=== PATIENT | male | born 1950 | race Caucasian/White ===

== ENCOUNTER 2017-07-22 00:53 | Inpatient (IN) | payer OTHER ==
[~2017-07-22] VITALS: Ht 180.3 cm; Wt 109.9 kg
[~2017-07-22 00:53] MED LIST: ANTIVERT25 MG PO; ASPIR-LOW81 MG PO; ASPIRIN325 MG PO; METOPROLOL SUC100 MG PO; PREDNISONE10 MG PO; PRINIVIL10 MG PO
[2017-07-22 01:13] LABS: ADD MIUA? YES; BILIRUBIN NEGATIVE; BLOOD SMALL; COLOR YELLOW ((YELLOW)); GLUCOSE (STRIP) NEGATIVE; KETONES NEGATIVE; LEUKOCYTES LARGE; NITRITE POSITIVE; PROTEIN (STRIP) 30; SPECIFIC GRAVITY 1.023 (1.000-1.030)
[2017-07-22 01:17] LABS: BACTERIA 3+ /HPF; EPITHELIAL CELLS RARE /HPF; MUCUS TRACE /LPF; UCUL ADDED? YES; WHITE BLOOD CELLS TNTC /HPF (0-5)
[2017-07-22 01:23] LABS: HEMATOCRIT 42.1 % (38.0-50.0); MCH 29.4 PG (29.0-34.0); MCHC 32.3 G/DL (30.0-36.0); MCV 91.1 FL (86-99); MEAN PLAT.VOLUME 10.9 uM^3 (9.0-12.4); PLATELET COUNT 244 K/uL (156-360); RBC DIS.WIDTH-CV 12.2 % (11.8-14.6); RBC DIS.WIDTH-SD 40.6 % (39-53); RED BLOOD COUNT 4.62 M/uL (4.00-5.50); WHITE BLOOD COUNT 10.2 K/uL (4.1-10.2)
[2017-07-22 01:40] LABS: CHLORIDE 104 mEq/L (99-109); POTASSIUM 4.4 mEq/L (3.7-5.4); SODIUM 139 mEq/L (136-147)
[2017-07-22 01:42] LABS: GLUCOSE 134 mg/dL (70-99)
[2017-07-22 01:44] LABS: ANION GAP 10 MEQ/L (2-14); TOTAL BILIRUBIN 0.3 mg/dL (0.0-1.0)
[2017-07-22 01:46] LABS: ALKALINE PHOSPHATASE 40 IU/L (3-129); GFR ESTIMATE (CALCULATED) 59 mL/min/
[2017-07-22 01:47] LABS: UREA NITROGEN (BUN) 29 mg/dL (9-23)
[2017-07-22] MEDS ORDERED: ASPIR 8181 M1 PO (03:11)
[2017-07-22 07:01] LABS: TROP-I INTERPRETATION NEGATIVE; TROPONIN-I < 0.01 ng/mL (0.0-0.30)
[2017-07-22 14:26] VITALS: BP 140/80
[2017-07-22 19:19] VITALS: BP 140/81
[2017-07-22 23:07] VITALS: BP 157/83
[2017-07-23 03:11] VITALS: BP 144/81
[2017-07-23 05:55] LABS: MCH 29.1 PG (29.0-34.0); MCHC 31.9 G/DL (30.0-36.0); MCV 91.3 FL (86-99); MEAN PLAT.VOLUME 11.1 uM^3 (9.0-12.4); PLATELET COUNT 247 K/uL (156-360); RBC DIS.WIDTH-CV 12.6 % (11.8-14.6); RBC DIS.WIDTH-SD 42.3 % (39-53); WHITE BLOOD COUNT 12.3 K/uL (4.1-10.2)
[2017-07-23 07:26] LABS: ANION GAP 10 MEQ/L (2-14); CHLORIDE 109 MEQ/L (99-109); GFR ESTIMATE (CALCULATED) > 59 mL/min/; GLUCOSE 113 mg/dL (70-99); POTASSIUM 4.2 MEQ/L (3.7-5.4); SAMPLE HEMOLYSIS CHECK 0; SAMPLE ICTERIC CHECK 0; SAMPLE LIPEMIA CHECK 0; SODIUM 143 MEQ/L (136-147); UREA NITROGEN (BUN) 29 mg/dL (9-23)
[2017-07-23 08:25] VITALS: BP 169/96
[2017-07-23 10:27] VITALS: BP 181/94
[2017-07-23 10:35] LABS: POINT-OF-CARE METER ID UU13113725
[2017-07-23 15:56] VITALS: BP 158/94
[2017-07-23 20:15] VITALS: BP 160/90
[2017-07-24 01:01] VITALS: BP 160/90
[2017-07-24 04:33] VITALS: BP 172/90
[2017-07-24 06:23] LABS: BASOPHIL COUNT 0.1 K/uL (0-0.1); EOSINOPHIL (%) 0.1 % (0-5); HEMATOCRIT 41.4 % (38.0-50.0); IMMATURE GRANULOCYTE (%) 0.3 % (0.0-0.7); INSTRUMENT ABS NEUTROPHIL CT 7.5 K/uL; MCH 29.2 PG (29.0-34.0); MCHC 32.1 G/DL (30.0-36.0); MCV 90.8 FL (86-99); MEAN PLAT.VOLUME 10.9 uM^3 (9.0-12.4); MONOCYTE (%) 9.7 % (3-12); MONOCYTE COUNT 0.9 K/uL (0-0.8); NEUTROPHIL (%) 78.6 % (45-76); NEUTROPHIL COUNT 7.5 K/uL (1.8-6.4); PLATELET COUNT 240 K/uL (156-360); RBC DIS.WIDTH-CV 12.7 % (11.8-14.6); RED BLOOD COUNT 4.56 M/uL (4.00-5.50); WHITE BLOOD COUNT 9.5 K/uL (4.1-10.2)
[2017-07-24 06:42] LABS: ANION GAP 7 MEQ/L (2-14); CHLORIDE 108 MEQ/L (99-109); GFR ESTIMATE (CALCULATED) > 59 mL/min/; GLUCOSE 113 mg/dL (70-99); POTASSIUM 4.1 MEQ/L (3.7-5.4); SAMPLE HEMOLYSIS CHECK 0; SAMPLE ICTERIC CHECK 0; SAMPLE LIPEMIA CHECK 0; SODIUM 139 MEQ/L (136-147); UREA NITROGEN (BUN) 32 mg/dL (9-23)
[2017-07-24 07:11] VITALS: BP 160/100
[2017-07-24 11:30] VITALS: BP 164/84
[2017-07-24 12:55] LABS: C DIFF TOXIN NEGATIVE (NEGATIVE)
[2017-07-24 12:58] LABS: PROBE CHECK PASS; SPECIMEN PROCESSING CONTROL PASS
[2017-07-24 16:37] VITALS: BP 169/82
[2017-07-24 23:35] VITALS: BP 153/72
[2017-07-25 06:18] LABS: BASOPHIL COUNT 0.1 K/uL (0-0.1); EOSINOPHIL (%) 1.5 % (0-5); EOSINOPHIL COUNT 0.1 K/uL (0-0.3); IMMATURE GRANULOCYTE (%) 0.1 % (0.0-0.7); INSTRUMENT ABS NEUTROPHIL CT 4.7 K/uL; LYMPHOCYTE COUNT 1.4 K/uL (1.0-2.8); MCHC 32.1 G/DL (30.0-36.0); MCV 90.1 FL (86-99); MEAN PLAT.VOLUME 10.9 uM^3 (9.0-12.4); MONOCYTE (%) 14.3 % (3-12); MONOCYTE COUNT 1.1 K/uL (0-0.8); NEUTROPHIL (%) 64.6 % (45-76); NEUTROPHIL COUNT 4.7 K/uL (1.8-6.4); PLATELET COUNT 239 K/uL (156-360); RBC DIS.WIDTH-CV 12.7 % (11.8-14.6); RBC DIS.WIDTH-SD 41.8 % (39-53); RED BLOOD COUNT 4.66 M/uL (4.00-5.50); WHITE BLOOD COUNT 7.3 K/uL (4.1-10.2)
[2017-07-25 06:40] LABS: ANION GAP 9 MEQ/L (2-14); CHLORIDE 106 MEQ/L (99-109); GFR ESTIMATE (CALCULATED) > 59 mL/min/; GLUCOSE 95 mg/dL (70-99); MAGNESIUM 1.9 mg/dl (1.3-2.7); POTASSIUM 3.7 MEQ/L (3.7-5.4); SAMPLE HEMOLYSIS CHECK 0; SAMPLE ICTERIC CHECK 0; SAMPLE LIPEMIA CHECK 0; SODIUM 137 MEQ/L (136-147); UREA NITROGEN (BUN) 34 mg/dL (9-23)
[2017-07-25 07:04] VITALS: BP 164/99
[2017-07-25 15:04] VITALS: BP 175/100
[2017-07-25 23:38] VITALS: BP 176/93
[2017-07-26 06:00] LABS: EOSINOPHIL COUNT 0.2 K/uL (0-0.3); IMMATURE GRANULOCYTE (%) 0.4 % (0.0-0.7); INSTRUMENT ABS NEUTROPHIL CT 5.4 K/uL; LYMPHOCYTE COUNT 1.2 K/uL (1.0-2.8); MCH 30.1 PG (29.0-34.0); MCHC 33.1 G/DL (30.0-36.0); MCV 90.9 FL (86-99); MEAN PLAT.VOLUME 11.1 uM^3 (9.0-12.4); MONOCYTE (%) 12.2 % (3-12); NEUTROPHIL (%) 69.5 % (45-76); NEUTROPHIL COUNT 5.4 K/uL (1.8-6.4); PLATELET COUNT 227 K/uL (156-360); RBC DIS.WIDTH-CV 12.8 % (11.8-14.6); RBC DIS.WIDTH-SD 42.4 % (39-53); RED BLOOD COUNT 4.29 M/uL (4.00-5.50); WHITE BLOOD COUNT 7.8 K/uL (4.1-10.2)
[2017-07-26 06:58] LABS: ALKALINE PHOSPHATASE 27 IU/L (3-129); ANION GAP 12 MEQ/L (2-14); CHLORIDE 108 MEQ/L (99-109); GFR ESTIMATE (CALCULATED) > 59 mL/min/; GLUCOSE 84 mg/dL (70-99); POTASSIUM 3.7 MEQ/L (3.7-5.4); SAMPLE HEMOLYSIS CHECK 0; SAMPLE ICTERIC CHECK 0; SAMPLE LIPEMIA CHECK 0; SODIUM 142 MEQ/L (136-147); TOTAL BILIRUBIN 0.5 MG/DL (0.0-1.0); UREA NITROGEN (BUN) 32 mg/dL (9-23)
[2017-07-26 07:25] VITALS: BP 170/102
[2017-07-26 15:33] VITALS: BP 111/75
[2017-07-26 21:00] VITALS: BP 144/72
[2017-07-27] VITALS: BP 152/79
[2017-07-27 05:50] LABS: BASOPHIL COUNT 0.1 K/uL (0-0.1); EOSINOPHIL (%) 1.4 % (0-5); EOSINOPHIL COUNT 0.1 K/uL (0-0.3); HEMATOCRIT 40.4 % (38.0-50.0); IMMATURE GRANULOCYTE (%) 0.4 % (0.0-0.7); INSTRUMENT ABS NEUTROPHIL CT 5.6 K/uL; LYMPHOCYTE COUNT 1.7 K/uL (1.0-2.8); MCHC 31.9 G/DL (30.0-36.0); MCV 90.8 FL (86-99); MEAN PLAT.VOLUME 10.8 uM^3 (9.0-12.4); MONOCYTE (%) 10.1 % (3-12); MONOCYTE COUNT 0.9 K/uL (0-0.8); NEUTROPHIL (%) 66.8 % (45-76); NEUTROPHIL COUNT 5.6 K/uL (1.8-6.4); PLATELET COUNT 260 K/uL (156-360); RBC DIS.WIDTH-CV 12.6 % (11.8-14.6); RBC DIS.WIDTH-SD 41.3 % (39-53); RED BLOOD COUNT 4.45 M/uL (4.00-5.50); WHITE BLOOD COUNT 8.4 K/uL (4.1-10.2)
[2017-07-27 06:24] LABS: ANION GAP 12 MEQ/L (2-14); CHLORIDE 111 MEQ/L (99-109); GFR ESTIMATE (CALCULATED) > 59 mL/min/; GLUCOSE 79 mg/dL (70-99); MAGNESIUM 2.1 mg/dl (1.3-2.7); POTASSIUM 3.6 MEQ/L (3.7-5.4); SAMPLE HEMOLYSIS CHECK 0; SAMPLE ICTERIC CHECK 0; SAMPLE LIPEMIA CHECK 0; SODIUM 145 MEQ/L (136-147); UREA NITROGEN (BUN) 32 mg/dL (9-23)
[2017-07-27 08:00] VITALS: BP 174/98
[2017-07-27 16:00] VITALS: BP 177/95
[2017-07-28 01:45] VITALS: BP 142/72
[2017-07-28 06:51] VITALS: BP 167/91
[2017-07-28 11:33] VITALS: BP 171/92
[2017-07-28 15:16] VITALS: BP 162/87
[2017-07-29 00:13] VITALS: BP 172/93
[2017-07-29 01:09] VITALS: BP 132/74
[2017-07-29 06:50] VITALS: BP 147/92
[2017-07-29 15:15] VITALS: BP 160/91
[2017-07-29 23:31] VITALS: BP 141/74
[2017-07-30 08:00] VITALS: BP 149/90
[2017-07-30] MEDS ORDERED: CEPHALEXIN500 MG PO (13:08)
== END 2017-07-30 14:02 | disposition home or self-care (01) | DRG 389 ==
LOC: EME 00:53 → EDOF 04:23 → 5EAST 04:23 → ENRESERV 04:28 → CANRESERV 04:51 → ENRESERV 12:00 → 5EAST 13:34
PROVIDERS: Hospitalist; Internal Medicine
PROC: 0DJD8ZZ Inspection of Lower Intestinal Tract, Via Natural or Artificial Opening Endoscopic (ICD-10-PCS; principal; 2017-07-23)
DX: K56.601 Complete intestinal obstruction, unspecified as to cause (principal); R19.7 Diarrhea, unspecified; N39.0 Urinary tract infection, site not specified; B96.1 Klebsiella pneumoniae [K. pneumoniae] as the cause of diseases classified elsewhere; R59.9 Enlarged lymph nodes, unspecified; I10 Essential (primary) hypertension; I48.91 Unspecified atrial fibrillation; I86.1 Scrotal varices; K57.30 Diverticulosis of large intestine without perforation or abscess without bleeding; R31.9 Hematuria, unspecified; E66.9 Obesity, unspecified; Z68.33 Body mass index [BMI] 33.0-33.9, adult; Z80.0 Family history of malignant neoplasm of digestive organs; Z79.82 Long term (current) use of aspirin
CPT/HCPCS: 71010; 74000; 74177; 76000; 80048; 80053; 81003; 82948; 83735; 84100; 84484; 85025; 85027; 87077; 87086; 87186; 87493; 99281; 99285; J0360; J0696; J1956; J2250; J2405; J3010; J7030; J7050; J7120; S0028

== ENCOUNTER 2017-10-14 21:43 | Inpatient (IN) | payer OTHER ==
[~2017-10-14] VITALS: Ht 177.8 cm; Wt 105.1 kg
[~2017-10-14 21:43] MED LIST changes: +ASPIR 8181 M1 PO; +CEPHALEXIN500 MG PO
[2017-10-15 05:58] VITALS: BP 162/96
[2017-10-15 17:28] VITALS: BP 166/84
[2017-10-15 19:38] VITALS: BP 141/85
[2017-10-15 22:25] VITALS: BP 138/95
[2017-10-16 03:54] VITALS: BP 143/78
[2017-10-16 06:56] LABS: HEMATOCRIT 36.7 % (38.0-50.0); MCH 29.9 PG (29.0-34.0); MCHC 32.7 G/DL (30.0-36.0); MCV 91.5 FL (86-99); PLATELET COUNT 179 K/uL (156-360); RBC DIS.WIDTH-CV 12.4 % (11.8-14.6); RBC DIS.WIDTH-SD 41.5 % (39-53); RED BLOOD COUNT 4.01 M/uL (4.00-5.50); WHITE BLOOD COUNT 9.4 K/uL (4.1-10.2)
[2017-10-16 07:14] LABS: CHLORIDE 109 MEQ/L (99-109); CREATININE 1.2 MG/DL (0.6-1.3); GFR ESTIMATE (CALCULATED) > 59 mL/min/ (58.99-99999); GLUCOSE 98 mg/dL (70-99); SODIUM 142 MEQ/L (136-147); UREA NITROGEN (BUN) 20 mg/dL (9-23)
[2017-10-16 07:46] VITALS: BP 130/70
[2017-10-16 15:45] VITALS: BP 165/89
[2017-10-16 23:48] VITALS: BP 157/88
[2017-10-17 07:47] VITALS: BP 156/81
[2017-10-17 17:18] VITALS: BP 128/72
[2017-10-18 00:28] VITALS: BP 154/85
[2017-10-18 08:22] VITALS: BP 137/79
[2017-10-18 16:28] VITALS: BP 161/80
[2017-10-18 23:19] VITALS: BP 155/80
[2017-10-19 08:14] VITALS: BP 157/79
[2017-10-19 16:13] VITALS: BP 159/86
[2017-10-19 23:47] VITALS: BP 147/82
[2017-10-20 07:35] VITALS: BP 141/75
[2017-10-20 15:46] VITALS: BP 142/77
[2017-10-21] VITALS: BP 134/74
[2017-10-21 06:37] LABS: HEMATOCRIT 37.2 % (38.0-50.0); HEMOGLOBIN 12.2 G/DL (12.5-16.6); MCH 29.7 PG (29.0-34.0); MCHC 32.8 G/DL (30.0-36.0); MCV 90.5 FL (86-99); RBC DIS.WIDTH-SD 39.7 % (39-53); RED BLOOD COUNT 4.11 M/uL (4.00-5.50); WHITE BLOOD COUNT 8.6 K/uL (4.1-10.2)
[2017-10-21 06:51] LABS: PLATELET COUNT 263 K/uL (156-360)
[2017-10-21 07:02] LABS: CHLORIDE 103 MEQ/L (99-109); CREATININE 1.2 MG/DL (0.6-1.3); GFR ESTIMATE (CALCULATED) > 59 mL/min/ (58.99-99999); GLUCOSE 98 mg/dL (70-99); POTASSIUM 4.4 MEQ/L (3.7-5.4); SODIUM 142 MEQ/L (136-147); UREA NITROGEN (BUN) 12 mg/dL (9-23)
[2017-10-21 07:45] VITALS: BP 124/71
[2017-10-21] MEDS ORDERED: NORCO 5/3251 TABLET PO (12:54)
[2017-10-21] MEDS ORDERED: COLACE100 MG PO (12:56)
[2017-10-21 15:25] VITALS: BP 127/74
== END 2017-10-21 19:03 | disposition home health service (06) | DRG 331 ==
LOC: ENRESERV 21:43 → 2SOUTH 10-15 05:27 → ENRESERV 10-15 13:45 → 5EAST 10-15 14:15
PROVIDERS: Thoracic Surgery (Cardiothoracic Vascular Surgery)
DX: K57.30 Diverticulosis of large intestine without perforation or abscess without bleeding (principal); K56.41 Fecal impaction; K76.0 Fatty (change of) liver, not elsewhere classified; E66.9 Obesity, unspecified; Z68.33 Body mass index [BMI] 33.0-33.9, adult; I10 Essential (primary) hypertension; I49.9 Cardiac arrhythmia, unspecified; Z79.82 Long term (current) use of aspirin
CPT/HCPCS: 80048; 82948; 85027; 86850; 86900; 86901; 86920; 88307; 94799; J0131; J0690; J1170; J1335; J1650; J1885; J2250; J2405; J2710; J3010; J3480; J7120; S0028